=== PATIENT | female | born 1985 | race Caucasian/White ===

== ENCOUNTER 2017-03-30 21:40 | Emergency (ER) | payer SELFPAY ==
[2017-03-30] MEDS ORDERED: HEARTBURN150 MG (21:51)
[2017-03-30] MEDS ORDERED: LORTAB 5-325 M1 EACH (21:51)
== END 2017-03-30 23:39 | disposition home or self-care (01) ==
LOC: SED 21:40
DX: G44.209 Tension-type headache, unspecified, not intractable (principal); F41.9 Anxiety disorder, unspecified; F32.9 Major depressive disorder, single episode, unspecified; Z88.2 Allergy status to sulfonamides; Z79.899 Other long term (current) drug therapy
CPT/HCPCS: 96372; 99283; J1170; J2550